=== PATIENT | male | born 1970 | race Two or more races ===

== ENCOUNTER 2023-07-20 19:02 | Inpatient (IN) | payer BC ==
[~2023-07-20] VITALS: Ht 170.2 cm; Wt 106.2 kg
[~2023-07-20 19:02] MED LIST: AMIO200T33 PO; ASPI-325 PO; ATOR20TA50 PO; CLOP75TA70 PO; EMPA1TAB PO; ERGO1CAP23 PO; FURO40TA4 PO; MAGN400T40 PO; MELA5TAB16 PO; MET25T PO; PANT40T PO; POTA-220 PO
[2023-07-20 19:56] LABS: Basophils # (auto) 0.1 10 ^3/uL (0-0.2); Basophils % (auto) 1.2 % (0.0-2.0); Eosinophils # (auto) 0.1 10 ^3/uL (0-0.8); Eosinophils % (auto) 1.5 % (0.0-7.0); Hematocrit 36.6 % (41.0-53.0); Hemoglobin 12.1 g/dL (13.5-17.5); Lymphocytes % (auto) 23.6 % (10.0-50.0); Mean Corpuscular Hemoglobin 29.2 pg (28.0-32.0); Mean Corpuscular Volume 88.5 fL (80.0-100.0); Monocytes # (auto) 0.6 10 ^3/uL (0-1.3); Monocytes % (auto) 7.5 % (0.0-12.0); Neutrophils # (auto) 5.6 10 ^3/uL (1.6-8.6); Neutrophils % (auto) 66.2 % (37.0-80.0); Red Blood Cells 4.13 10^6/uL (4.5-5.90); Red Cell Distribution Width 14.6 % (11.8-14.3); White Blood Cell 8.4 10^3/uL (4.4-10.8)
[2023-07-20 20:04] VITALS: PULSE 88; RESP 15; O2SAT 97
[2023-07-20 20:13] LABS: INR 1.02 (0.9-1.15); Partial Thromboplastin Time 26.2 SEC (24.5-34.5); Prothrombin Time 10.7 sec (9.3-11.8)
[2023-07-20] MEDS: IOHEXOL 350 MG/ML 100ML IJ ONE (20:14)
[2023-07-20 20:33] LABS: Albumin 4.1 g/dL (3.2-4.8); Alkaline Phosphatase 155 U/L (46-116); Anion Gap 7 (5-15); Aspartate Aminotransferase 43 U/L (13-40); Calcium 9.4 mg/dL (8.7-10.4); Carbon Dioxide 26 mmol/L (20-30); Chloride 105 mmol/L (98-107); Glucose 109 mg/dL (74-106); Magnesium 1.8 mg/dL (1.6-2.6); Sodium 138 mmol/L (136-145)
[2023-07-20 20:34] LABS: Bilirubin, Total 0.4 mg/dL (0.2-1.0); Total Protein 7.7 g/dL (5.7-8.2)
[2023-07-20 20:54] LABS: Alanine Aminotransferase 32 U/L (7-40); BUN/Creatinine Ratio 10.6 (10.0-20.0); Blood Urea Nitrogen 13 mg/dL (9-23); Potassium 4.5 mmol/L (3.5-5.1)
[2023-07-21] MEDS ORDERED: ACETAMINOPHEN 325 MG TAB PO PRN (00:30)
[2023-07-21] MEDS ORDERED: HYDROcodone-ACET 5/325MG TAB PO PRN (00:30)
[2023-07-21] MEDS ORDERED: DEXTROSE (50%) 50ML SYRG IV PRN (00:30)
[2023-07-21] MEDS ORDERED: ONDANSETRON HCL 4 MG/2 ML VIAL IV PRN (00:30)
[2023-07-21 00:41] LABS: Urine Bacteria None Seen /hpf (None Seen)
[2023-07-21 01:30] LABS: Amphetamine Screen, Urine Neg (NEGATIVE); Barbiturate Scree,Urine Neg (NEGATIVE); Benzodiazephine Screen, Urine Neg (NEGATIVE)
[2023-07-21 01:31] LABS: Cannabinoid Screen, Urine Neg (NEGATIVE); Cocaine Screen, Urine Neg (NEGATIVE); Opiate Scree,Urine Neg (NEGATIVE); Phencyclidine Screen, Urine Neg (NEGATIVE)
[2023-07-21] MEDS ORDERED: MORPHINE SULFATE INJ 2 MG/ml SYRG IV PRN (01:45)
[2023-07-21] MEDS ORDERED: NITROGLYCERIN 0.4 MG SL TAB SL PRN (01:45)
[2023-07-21 02:03] LABS: Urine Blood 3+ /uL (Negative); Urine Clarity Clear (Clear); Urine Color Yellow (Yellow); Urine Protein, UAD TRACE (Negative); Urine Urobilinogen Normal (Negative); Urine WBC 129 /hpf (0 - 3)
[2023-07-21 02:09] LABS: Urine Specific Gravity > 1.050 (1.001-1.035)
[2023-07-21] MEDS: SODIUM CHLORIDE 0.9% 500 ML IV ONE (03:31)
[2023-07-21 04:41] LABS: Basophils # (auto) 0.1 10 ^3/uL (0-0.2); Basophils % (auto) 1.1 % (0.0-2.0); Eosinophils # (auto) 0.2 10 ^3/uL (0-0.8); Eosinophils % (auto) 2.3 % (0.0-7.0); Hematocrit 37.9 % (41.0-53.0); Hemoglobin 12.4 g/dL (13.5-17.5); Lymphocytes % (auto) 29.6 % (10.0-50.0); Mean Corpuscular Hemoglobin 29.1 pg (28.0-32.0); Mean Corpuscular Hgb Conc. 32.6 g/dL (32.0-36.0); Mean Corpuscular Volume 89.3 fL (80.0-100.0); Monocytes # (auto) 0.5 10 ^3/uL (0-1.3); Monocytes % (auto) 7.6 % (0.0-12.0); Neutrophils # (auto) 4.1 10 ^3/uL (1.6-8.6); Neutrophils % (auto) 59.4 % (37.0-80.0); Nucleated Red Blood Cells % 0.1 %; Red Blood Cells 4.24 10^6/uL (4.5-5.90); Red Cell Distribution Width 14.8 % (11.8-14.3); White Blood Cell 6.9 10^3/uL (4.4-10.8)
[2023-07-21] MEDS: SODIUM CHLORIDE 0.9% 1,000 ML IV ONE (05:12)
[2023-07-21] MEDS: SODIUM CHLOR 0.9% PF (SALINE LOCK) 10ML VIAL/SYR IV SCH (06:05)
[2023-07-21 06:19] LABS: Alanine Aminotransferase 31 U/L (7-40); Albumin 3.9 g/dL (3.2-4.8); Alkaline Phosphatase 152 U/L (46-116); Anion Gap 9 (5-15); Aspartate Aminotransferase 27 U/L (13-40); BUN/Creatinine Ratio 14.9 (10.0-20.0); Bilirubin, Total 0.4 mg/dL (0.2-1.0); Blood Urea Nitrogen 15 mg/dL (9-23); Calcium 9.5 mg/dL (8.7-10.4); Carbon Dioxide 24 mmol/L (20-30); Chloride 106 mmol/L (98-107); Glucose 101 mg/dL (74-106); Potassium 4.3 mmol/L (3.5-5.1); Sodium 139 mmol/L (136-145)
[2023-07-21 06:20] LABS: Total Protein 6.9 g/dL (5.7-8.2)
[2023-07-21] MEDS: SODIUM CHLORIDE 0.9% 1,000 ML IV SCH (06:27)
[2023-07-21] MEDS ORDERED: ACCU-CHEK COMFORT CURVE STRIP VI SCH (07:00)
[2023-07-21] MEDS ORDERED: InsuLIN REG 1unit/0.01ml Soln (100units/ml) SC SCH (07:00)
[2023-07-21] MEDS: METOPROLOL TARTRATE 25 MG TAB PO SCH (10:00)
[2023-07-21] MEDS: FUROSEMIDE 40 MG/4 ML VIAL IV SCH (10:00)
[2023-07-21] MEDS: EMPAGLIFLOZIN 10 MG TAB PO SCH (10:00)
[2023-07-21] MEDS: SACUBITRIL-VALSARTAN 24mg/26mg TAB PO SCH (10:00)
[2023-07-21] MEDS: ASPirin 81 mg TAB PO SCH (10:00)
[2023-07-21] MEDS: CLOPIDOGREL BISULFATE 75 MG TAB PO SCH (10:00)
[2023-07-21] MEDS ORDERED: METO25TA93 PO (10:23)
[2023-07-21 10:48] LABS: Magnesium 1.9 mg/dL (1.6-2.6)
[2023-07-21] MEDS: MAGNESIUM OXIDE 400 MG TAB PO ONE (14:10)
[2023-07-21 15:10] VITALS: PULSE 74; RESP 20; O2SAT 96
[2023-07-21 16:30] VITALS: BP 106/66; PULSE 74; RESP 17; TEMP 97.8; O2SAT 97
[2023-07-21 20:00] VITALS: BP 107/67; PULSE 81; PULSE 82; RESP 18; TEMP 98.3; O2SAT 98
[2023-07-21 22:00] VITALS: BP 107/67; PULSE 81; RESP 18; TEMP 98.3; O2SAT 98
[2023-07-21] MEDS ORDERED: LORazepam 2MG/ML-1ML VIAL IV PRN (22:00)
[2023-07-21] MEDS: AMIODARONE HCL 200 MG TAB PO SCH (22:07)
[2023-07-21] MEDS: ATORVASTATIN 20 MG TAB PO SCH (22:07)
[2023-07-21 22:42] VITALS: O2SAT 98
[2023-07-22] VITALS (9 sets, daily range): BP systolic 95–109; BP diastolic 46–67; PULSE 74–89; RESP 17–20; TEMP 97.8–98.9; O2SAT 95–98
[2023-07-22 06:10] LABS: Alanine Aminotransferase 22 U/L (7-40); Albumin 3.6 g/dL (3.2-4.8); Alkaline Phosphatase 127 U/L (46-116); Anion Gap 5 (5-15); Aspartate Aminotransferase 16 U/L (13-40); BUN/Creatinine Ratio 12.1 (10.0-20.0); Bilirubin, Total 0.5 mg/dL (0.2-1.0); Blood Urea Nitrogen 13 mg/dL (9-23); Carbon Dioxide 28 mmol/L (20-30); Chloride 106 mmol/L (98-107); Glucose 101 mg/dL (74-106); Potassium 3.6 mmol/L (3.5-5.1); Sodium 139 mmol/L (136-145); Total Protein 6.4 g/dL (5.7-8.2)
[2023-07-22 06:17] LABS: Basophils # (auto) 0 10 ^3/uL (0-0.2); Basophils % (auto) 0.7 % (0.0-2.0); Eosinophils # (auto) 0.2 10 ^3/uL (0-0.8); Eosinophils % (auto) 2.4 % (0.0-7.0); Hematocrit 34.9 % (41.0-53.0); Hemoglobin 11.4 g/dL (13.5-17.5); Lymphocytes # (auto) 2.2 10 ^3/uL (0.4-5.4); Lymphocytes % (auto) 34.3 % (10.0-50.0); Mean Corpuscular Hemoglobin 29.4 pg (28.0-32.0); Mean Corpuscular Hgb Conc. 32.7 g/dL (32.0-36.0); Monocytes # (auto) 0.4 10 ^3/uL (0-1.3); Monocytes % (auto) 6.2 % (0.0-12.0); Neutrophils # (auto) 3.6 10 ^3/uL (1.6-8.6); Neutrophils % (auto) 56.4 % (37.0-80.0); Red Blood Cells 3.88 10^6/uL (4.5-5.90); Red Cell Distribution Width 15.1 % (11.8-14.3); White Blood Cell 6.4 10^3/uL (4.4-10.8)
[2023-07-22] MEDS: MAGNESIUM OXIDE 400 MG TAB PO SCH (10:26)
[2023-07-23] VITALS (9 sets, daily range): BP systolic 96–124; BP diastolic 47–76; PULSE 77–96; RESP 17–91; TEMP 97.4–98.2; O2SAT 95–99
[2023-07-23] MEDS: SPIRONOLACTONE 25 MG TAB PO SCH (12:01)
[2023-07-23 12:13] LABS: Basophils # (auto) 0.1 10 ^3/uL (0-0.2); Eosinophils # (auto) 0.1 10 ^3/uL (0-0.8); Eosinophils % (auto) 1.8 % (0.0-7.0); Hematocrit 39.2 % (41.0-53.0); Hemoglobin 12.5 g/dL (13.5-17.5); Lymphocytes # (auto) 1.9 10 ^3/uL (0.4-5.4); Lymphocytes % (auto) 30.5 % (10.0-50.0); Mean Corpuscular Volume 90.5 fL (80.0-100.0); Monocytes # (auto) 0.4 10 ^3/uL (0-1.3); Monocytes % (auto) 6.1 % (0.0-12.0); Neutrophils # (auto) 3.7 10 ^3/uL (1.6-8.6); Neutrophils % (auto) 60.6 % (37.0-80.0); Nucleated Red Blood Cells % 0.1 %; Red Blood Cells 4.33 10^6/uL (4.5-5.90); Red Cell Distribution Width 15.1 % (11.8-14.3); White Blood Cell 6.2 10^3/uL (4.4-10.8)
[2023-07-23 12:21] LABS: Chloride 107 mmol/L (98-107); Potassium 3.7 mmol/L (3.5-5.1); Sodium 140 mmol/L (136-145)
[2023-07-23 12:22] LABS: Anion Gap 9 (5-15); Calcium 9.2 mg/dL (8.5-10.1); Carbon Dioxide 24 mmol/L (20-30)
[2023-07-23 12:27] LABS: Glucose 110 mg/dL (74-106)
[2023-07-23 12:28] LABS: Blood Urea Nitrogen 9 mg/dL (9-23)
[2023-07-23] MEDS: DOCUSATE SOD 100 MG CAP PO PRN (18:45)
[2023-07-24] VITALS (11 sets, daily range): BP systolic 88–129; BP diastolic 50–83; PULSE 70–92; RESP 14–20; TEMP 97.7–98.3; O2SAT 96–99
[2023-07-24 05:52] LABS: Basophils # (auto) 0.1 10 ^3/uL (0-0.2); Basophils % (auto) 0.8 % (0.0-2.0); Eosinophils # (auto) 0.2 10 ^3/uL (0-0.8); Eosinophils % (auto) 2.7 % (0.0-7.0); Hematocrit 36.8 % (41.0-53.0); Hemoglobin 11.8 g/dL (13.5-17.5); Lymphocytes # (auto) 2.4 10 ^3/uL (0.4-5.4); Lymphocytes % (auto) 34.5 % (10.0-50.0); Mean Corpuscular Hemoglobin 28.4 pg (28.0-32.0); Mean Corpuscular Hgb Conc. 32.1 g/dL (32.0-36.0); Mean Corpuscular Volume 88.7 fL (80.0-100.0); Monocytes # (auto) 0.5 10 ^3/uL (0-1.3); Neutrophils # (auto) 3.8 10 ^3/uL (1.6-8.6); Red Blood Cells 4.15 10^6/uL (4.5-5.90); Red Cell Distribution Width 14.5 % (11.8-14.3); White Blood Cell 6.9 10^3/uL (4.4-10.8)
[2023-07-24 06:17] LABS: Chloride 108 mmol/L (98-107); Potassium 3.8 mmol/L (3.5-5.1); Sodium 138 mmol/L (136-145)
[2023-07-24 06:18] LABS: Calcium 9.2 mg/dL (8.7-10.4)
[2023-07-24 06:23] LABS: BUN/Creatinine Ratio 10.6 (10.0-20.0); Blood Urea Nitrogen 11 mg/dL (9-23); Glucose 97 mg/dL (74-106)
[2023-07-24 07:21] LABS: Anion Gap 6 (5-15); Carbon Dioxide 24 mmol/L (20-30)
[2023-07-24] MEDS: MIDAZOLAM HCL 2MG/2ML 2ml VIAL (1mg/ml) ONE (12:52)
[2023-07-24] MEDS: fentaNYL CITRATE 100 MCG/2 ML VL ONE (12:52)
[2023-07-24] MEDS: LIDOCAINE VISCOUS 2% 15ML UD ONE (12:52)
[2023-07-24] MEDS: LIDOCAINE VISCOUS 2% 15ML UD PO ONE (13:48)
[2023-07-24] MEDS: fentaNYL CITRATE 100 MCG/2 ML VL IV ONE (13:58)
[2023-07-24] MEDS: MIDAZOLAM HCL 2MG/2ML 2ml VIAL (1mg/ml) IV ONE (13:58)
[2023-07-25 00:54] VITALS: BP 103/65; PULSE 97; RESP 16; TEMP 98.6; O2SAT 100
[2023-07-25 05:00] VITALS: BP 86/55; PULSE 87; RESP 17; TEMP 97.6; O2SAT 97
[2023-07-25 06:48] LABS: Chloride 107 mmol/L (98-107); Potassium 3.9 mmol/L (3.5-5.1); Sodium 138 mmol/L (136-145)
[2023-07-25 06:49] LABS: Anion Gap 7 (5-15); Calcium 9.1 mg/dL (8.5-10.1); Carbon Dioxide 24 mmol/L (20-30)
[2023-07-25 06:54] LABS: BUN/Creatinine Ratio 10.3 (10.0-20.0); Blood Urea Nitrogen 12 mg/dL (9-23); Glucose 98 mg/dL (74-106)
[2023-07-25 07:09] LABS: Basophils # (auto) 0 10 ^3/uL (0-0.2); Basophils % (auto) 0.7 % (0.0-2.0); Eosinophils # (auto) 0.2 10 ^3/uL (0-0.8); Eosinophils % (auto) 2.5 % (0.0-7.0); Hemoglobin 12.1 g/dL (13.5-17.5); Lymphocytes # (auto) 2.1 10 ^3/uL (0.4-5.4); Lymphocytes % (auto) 32.1 % (10.0-50.0); Magnesium 2.1 mg/dL (1.6-2.6); Mean Corpuscular Hemoglobin 29.3 pg (28.0-32.0); Mean Corpuscular Hgb Conc. 32.8 g/dL (32.0-36.0); Mean Corpuscular Volume 89.3 fL (80.0-100.0); Monocytes # (auto) 0.5 10 ^3/uL (0-1.3); Monocytes % (auto) 7.8 % (0.0-12.0); Neutrophils # (auto) 3.8 10 ^3/uL (1.6-8.6); Neutrophils % (auto) 56.9 % (37.0-80.0); Nucleated Red Blood Cells % 0.1 %; Red Blood Cells 4.14 10^6/uL (4.5-5.90); Red Cell Distribution Width 15.1 % (11.8-14.3); White Blood Cell 6.7 10^3/uL (4.4-10.8)
[2023-07-25 08:00] VITALS: PULSE 82; PULSE 88; RESP 18; O2SAT 98
[2023-07-25 09:00] VITALS: BP 95/54; PULSE 88; RESP 18; TEMP 97.8; O2SAT 98
[2023-07-25] MEDS ORDERED: CLOP75TA70 PO (10:24)
[2023-07-25] MEDS ORDERED: SACU1TAB PO (10:24)
[2023-07-25] MEDS ORDERED: MET25T PO (10:24)
[2023-07-25] MEDS ORDERED: ATOR20TA50 PO (10:24)
[2023-07-25] MEDS ORDERED: SPIR25TA PO (10:24)
[2023-07-25] MEDS ORDERED: ASPI-325 PO (10:24)
[2023-07-25] MEDS ORDERED: CEPH250C PO (13:11)
[2023-07-25 13:23] VITALS: BP 96/59; PULSE 73; RESP 14; TEMP 98.3; O2SAT 97
== END 2023-07-25 15:28 | disposition home or self-care (01) | DRG 64 ==
LOC: ER 19:02 → TELE 07-21 01:35 → TELE-CENTR 07-21 01:35
PROVIDERS: ADMIT Internal Medicine; ATTEND Surgery
PROC: B24BZZ4 Ultrasonography of Heart with Aorta, Transesophageal (ICD-10-PCS; principal; 2023-07-24)
DX: I63.9 Cerebral infarction, unspecified (principal); I21.A1 Myocardial infarction type 2; I50.33 Acute on chronic diastolic (congestive) heart failure; G81.94 Hemiplegia, unspecified affecting left nondominant side; I11.0 Hypertensive heart disease with heart failure; I25.5 Ischemic cardiomyopathy; E66.01 Morbid (severe) obesity due to excess calories; I49.8 Other specified cardiac arrhythmias; R47.81 Slurred speech; I25.10 Atherosclerotic heart disease of native coronary artery without angina pectoris; E78.2 Mixed hyperlipidemia; I44.7 Left bundle-branch block, unspecified; F17.200 Nicotine dependence, unspecified, uncomplicated; Z98.61 Coronary angioplasty status; Z79.82 Long term (current) use of aspirin; Z79.899 Other long term (current) drug therapy; Z82.49 Family history of ischemic heart disease and other diseases of the circulatory system; Z83.3 Family history of diabetes mellitus; Z68.36 Body mass index [BMI] 36.0-36.9, adult
CPT/HCPCS: 36415; 70450; 70496; 70551; 71045; 80048; 80053; 80061; 80307; 81001; 83735; 83880; 84443; 84484; 85025; 85610; 85730; 87081; 93005; 93312; 93886; 93970; 97163; 99152; G0378; J2250

== ENCOUNTER 2023-08-20 08:36 | Inpatient (IN) | payer BC ==
[~2023-08-20] VITALS: Ht 170.2 cm; Wt 104.0 kg
[~2023-08-20 08:36] MED LIST changes: +CEPH250C PO; +SACU1TAB PO; +SPIR25TA PO
[2023-08-20] MEDS: ONDANSETRON HCL 4 MG/2 ML VIAL IV ONE (09:19)
[2023-08-20 09:21] VITALS: PULSE 63; RESP 20; O2SAT 98
[2023-08-20 09:21] LABS: Basophils # (auto) 0.1 10 ^3/uL (0-0.2); Basophils % (auto) 1.1 % (0.0-2.0); Eosinophils # (auto) 0.6 10 ^3/uL (0-0.8); Hematocrit 42.6 % (41.0-53.0); Hemoglobin 13.8 g/dL (13.5-17.5); Lymphocytes # (auto) 2.2 10 ^3/uL (0.4-5.4); Lymphocytes % (auto) 23.2 % (10.0-50.0); Mean Corpuscular Hemoglobin 29.3 pg (28.0-32.0); Mean Corpuscular Hgb Conc. 32.3 g/dL (32.0-36.0); Mean Corpuscular Volume 90.8 fL (80.0-100.0); Monocytes # (auto) 0.7 10 ^3/uL (0-1.3); Monocytes % (auto) 7.5 % (0.0-12.0); Neutrophils % (auto) 62.2 % (37.0-80.0); Red Cell Distribution Width 15.3 % (11.8-14.3); White Blood Cell 9.6 10^3/uL (4.4-10.8)
[2023-08-20 09:38] LABS: Chloride 107 mmol/L (98-107); Potassium 3.8 mmol/L (3.5-5.1); Sodium 142 mmol/L (136-145)
[2023-08-20 09:39] LABS: Anion Gap 10 (5-15); Carbon Dioxide 25 mmol/L (20-30)
[2023-08-20 09:40] LABS: Calcium 10.4 mg/dL (8.5-10.1)
[2023-08-20 09:44] LABS: BUN/Creatinine Ratio 9.1 (10.0-20.0); Blood Urea Nitrogen 11 mg/dL (9-23); Glucose 137 mg/dL (74-106)
[2023-08-20] MEDS ORDERED: MORPHINE SULFATE INJ 2 MG/ml SYRG IV PRN (11:45)
[2023-08-20] MEDS ORDERED: ACETAMINOPHEN 325 MG TAB PO PRN (11:45)
[2023-08-20] MEDS ORDERED: NITROGLYCERIN 0.4 MG SL TAB SL PRN (11:45)
[2023-08-20] MEDS ORDERED: DEXTROSE (50%) 50ML SYRG IV PRN (12:15)
[2023-08-20] MEDS: ERGOCALCIFEROL 50,000 UNIT(1.25MG) CAP PO SCH (12:21)
[2023-08-20] MEDS: MECLIZINE HCL 25 MG TAB PO ONE (12:21)
[2023-08-20] MEDS: SODIUM CHLORIDE 0.9% 2,000 ML IV ONE (12:29)
[2023-08-20 15:00] LABS: Urine Bacteria None Seen /hpf (None Seen)
[2023-08-20 15:08] LABS: Urine Blood 1+ /uL (Negative); Urine Clarity Clear (Clear); Urine Color Yellow (Yellow); Urine Mucus FEW (None Seen); Urine Protein, UAD TRACE (Negative); Urine Specific Gravity 1.022 (1.001-1.035); Urine Urobilinogen Normal (Negative); Urine WBC 3 /hpf (0 - 3); Urine pH 6.5 (5.0-9.0)
[2023-08-20] MEDS: SODIUM CHLORIDE 0.9% 1,000 ML IV SCH (15:36)
[2023-08-20] MEDS: InsuLIN REG 1unit/0.01ml Soln (100units/ml) SC SCH (17:00)
[2023-08-20] MEDS: ACCU-CHEK COMFORT CURVE STRIP VI SCH (17:21)
[2023-08-20 20:09] VITALS: PULSE 79; RESP 12; O2SAT 96
[2023-08-20] MEDS: METOPROLOL TARTRATE 25 MG TAB PO SCH (22:58)
[2023-08-20] MEDS: AMIODARONE HCL 200 MG TAB PO SCH (22:58)
[2023-08-20] MEDS: MELATONIN 5 MG TAB PO SCH (22:58)
[2023-08-20] MEDS: SACUBITRIL-VALSARTAN 24mg/26mg TAB PO SCH (22:58)
[2023-08-20] MEDS: ATORVASTATIN 20 MG TAB PO SCH (22:59)
[2023-08-21] VITALS (7 sets, daily range): BP systolic 91–98; BP diastolic 53–61; PULSE 55–62; RESP 18–20; TEMP 97.6–98; O2SAT 97–98
[2023-08-21 05:38] LABS: Basophils # (auto) 0 10 ^3/uL (0-0.2); Basophils % (auto) 0.6 % (0.0-2.0); Eosinophils # (auto) 0.6 10 ^3/uL (0-0.8); Eosinophils % (auto) 8.5 % (0.0-7.0); Hematocrit 36.6 % (41.0-53.0); Lymphocytes # (auto) 1.6 10 ^3/uL (0.4-5.4); Lymphocytes % (auto) 23.6 % (10.0-50.0); Mean Corpuscular Hemoglobin 29.5 pg (28.0-32.0); Mean Corpuscular Hgb Conc. 32.7 g/dL (32.0-36.0); Mean Corpuscular Volume 90.3 fL (80.0-100.0); Monocytes # (auto) 0.5 10 ^3/uL (0-1.3); Monocytes % (auto) 6.8 % (0.0-12.0); Neutrophils # (auto) 4.2 10 ^3/uL (1.6-8.6); Neutrophils % (auto) 60.5 % (37.0-80.0); Red Blood Cells 4.06 10^6/uL (4.5-5.90); Red Cell Distribution Width 14.8 % (11.8-14.3)
[2023-08-21 05:46] LABS: Alanine Aminotransferase 68 U/L (7-40); Alkaline Phosphatase 92 U/L (46-116); Anion Gap 7 (5-15); Aspartate Aminotransferase 38 U/L (13-40); BUN/Creatinine Ratio 9.6 (10.0-20.0); Blood Urea Nitrogen 11 mg/dL (9-23); Calcium 9.4 mg/dL (8.5-10.1); Carbon Dioxide 26 mmol/L (20-30); Chloride 110 mmol/L (98-107); Glucose 107 mg/dL (74-106); Potassium 3.9 mmol/L (3.5-5.1); Sodium 143 mmol/L (136-145)
[2023-08-21 05:47] LABS: Albumin 3.8 g/dL (3.2-4.8); Bilirubin, Total 0.4 mg/dL (0.2-1.0); Total Protein 6.3 g/dL (5.7-8.2)
[2023-08-21] MEDS: MAGNESIUM OXIDE 400 MG TAB PO SCH (10:00)
[2023-08-21] MEDS: POTASSIUM CHL 20 Meq TABLET PO SCH (10:47)
[2023-08-21] MEDS: CLOPIDOGREL BISULFATE 75 MG TAB PO SCH (10:47)
[2023-08-21] MEDS: PANTOPRAZOLE 40 MG TAB PO SCH (10:48)
[2023-08-21] MEDS: ASPirin-EC 81 mg tab PO SCH (10:49)
[2023-08-21] MEDS: MECLIZINE HCL 25 MG TAB PO PRN (10:58)
[2023-08-21] MEDS: SPIRONOLACTONE 25 MG TAB PO SCH (14:01)
[2023-08-21] MEDS: FUROSEMIDE 40 MG TAB PO SCH (14:05)
[2023-08-21] MEDS: SACUBITRIL-VALSARTAN 24mg/26mg TAB PO SCH (22:00)
[2023-08-22] VITALS (8 sets, daily range): BP systolic 83–105; BP diastolic 50–70; PULSE 58–84; RESP 17–20; TEMP 97.6–98.2; O2SAT 94–100
[2023-08-22 07:01] LABS: Basophils # (auto) 0 10 ^3/uL (0-0.2); Basophils % (auto) 0.8 % (0.0-2.0); Eosinophils # (auto) 0.5 10 ^3/uL (0-0.8); Hematocrit 37.8 % (41.0-53.0); Hemoglobin 12.3 g/dL (13.5-17.5); Lymphocytes # (auto) 1.6 10 ^3/uL (0.4-5.4); Lymphocytes % (auto) 26.3 % (10.0-50.0); Mean Corpuscular Hemoglobin 29.2 pg (28.0-32.0); Mean Corpuscular Hgb Conc. 32.5 g/dL (32.0-36.0); Mean Corpuscular Volume 89.9 fL (80.0-100.0); Monocytes # (auto) 0.4 10 ^3/uL (0-1.3); Neutrophils # (auto) 3.5 10 ^3/uL (1.6-8.6); Neutrophils % (auto) 57.9 % (37.0-80.0); Red Blood Cells 4.21 10^6/uL (4.5-5.90); Red Cell Distribution Width 14.7 % (11.8-14.3)
[2023-08-22 07:23] LABS: Alanine Aminotransferase 81 U/L (7-40); Albumin 3.7 g/dL (3.2-4.8); Alkaline Phosphatase 92 U/L (46-116); Anion Gap 9 (5-15); Aspartate Aminotransferase 44 U/L (13-40); BUN/Creatinine Ratio 8.6 (10.0-20.0); Bilirubin, Total 0.5 mg/dL (0.2-1.0); Blood Urea Nitrogen 9 mg/dL (9-23); Calcium 9.5 mg/dL (8.5-10.1); Carbon Dioxide 24 mmol/L (20-30); Chloride 106 mmol/L (98-107); Glucose 92 mg/dL (74-106); Potassium 3.9 mmol/L (3.5-5.1); Sodium 139 mmol/L (136-145); Total Protein 6.3 g/dL (5.7-8.2)
[2023-08-22] MEDS: EMPAGLIFLOZIN 10 MG TAB PO SCH (09:58)
[2023-08-23 01:00] VITALS: BP 94/52; PULSE 68; RESP 20; TEMP 98.3; O2SAT 95
[2023-08-23 05:00] VITALS: BP 88/59; PULSE 71; RESP 22; TEMP 97.9; O2SAT 98
[2023-08-23 08:00] VITALS: PULSE 70
[2023-08-23 08:58] VITALS: BP 98/58; PULSE 71; RESP 19; TEMP 98; O2SAT 100
[2023-08-23] MEDS: LACTULOSE 20Gm/30ML SOLN PO ONE (09:27)
[2023-08-23 10:12] LABS: Basophils # (auto) 0.1 10 ^3/uL (0-0.2); Basophils % (auto) 0.9 % (0.0-2.0); Eosinophils # (auto) 0.5 10 ^3/uL (0-0.8); Eosinophils % (auto) 8.4 % (0.0-7.0); Hematocrit 40.8 % (41.0-53.0); Hemoglobin 13.5 g/dL (13.5-17.5); Lymphocytes # (auto) 1.3 10 ^3/uL (0.4-5.4); Lymphocytes % (auto) 20.8 % (10.0-50.0); Mean Corpuscular Hemoglobin 29.1 pg (28.0-32.0); Mean Corpuscular Hgb Conc. 33.1 g/dL (32.0-36.0); Mean Corpuscular Volume 88.2 fL (80.0-100.0); Monocytes # (auto) 0.4 10 ^3/uL (0-1.3); Monocytes % (auto) 5.7 % (0.0-12.0); Neutrophils # (auto) 4.2 10 ^3/uL (1.6-8.6); Neutrophils % (auto) 64.2 % (37.0-80.0); Nucleated Red Blood Cells % 0.1 %; Red Blood Cells 4.62 10^6/uL (4.5-5.90); Red Cell Distribution Width 14.6 % (11.8-14.3); White Blood Cell 6.5 10^3/uL (4.4-10.8)
[2023-08-23 10:18] LABS: Alanine Aminotransferase 121 U/L (7-40); Albumin 4.4 g/dL (3.2-4.8); Alkaline Phosphatase 117 U/L (46-116); Anion Gap 10 (5-15); Aspartate Aminotransferase 72 U/L (13-40); Blood Urea Nitrogen 14 mg/dL (9-23); Calcium 10.1 mg/dL (8.5-10.1); Carbon Dioxide 25 mmol/L (20-30); Chloride 103 mmol/L (98-107); Glucose 133 mg/dL (74-106); Potassium 3.8 mmol/L (3.5-5.1); Sodium 138 mmol/L (136-145)
[2023-08-23 10:19] LABS: Bilirubin, Total 0.5 mg/dL (0.2-1.0); Total Protein 7.5 g/dL (5.7-8.2)
[2023-08-23 10:26] VITALS: BP 98/58; PULSE 71; RESP 19; TEMP 98; O2SAT 100
== END 2023-08-23 12:47 | disposition home or self-care (01) | DRG 312 ==
LOC: ER 08:36 → OVERFLOW 11:45 → WEST WING 08-21 08:10 → TELE-WESTW 08-21 15:52
PROVIDERS: ADMIT Internal Medicine; ATTEND Internal Medicine
DX: I95.2 Hypotension due to drugs (principal); I50.23 Acute on chronic systolic (congestive) heart failure; I47.20 Ventricular tachycardia, unspecified; E87.20 Acidosis, unspecified; E86.0 Dehydration; R00.1 Bradycardia, unspecified; E78.00 Pure hypercholesterolemia, unspecified; E66.01 Morbid (severe) obesity due to excess calories; I11.0 Hypertensive heart disease with heart failure; T50.995A Adverse effect of other drugs, medicaments and biological substances, initial encounter; E11.9 Type 2 diabetes mellitus without complications; I25.5 Ischemic cardiomyopathy; G90.8 Other disorders of autonomic nervous system; I25.2 Old myocardial infarction; Z79.02 Long term (current) use of antithrombotics/antiplatelets; Z87.442 Personal history of urinary calculi; Z86.73 Personal history of transient ischemic attack (TIA), and cerebral infarction without residual deficits; Z98.61 Coronary angioplasty status; Z83.3 Family history of diabetes mellitus; Z79.4 Long term (current) use of insulin; Z82.49 Family history of ischemic heart disease and other diseases of the circulatory system; Z86.74 Personal history of sudden cardiac arrest; Z68.35 Body mass index [BMI] 35.0-35.9, adult; Y92.89 Other specified places as the place of occurrence of the external cause
CPT/HCPCS: 36415; 71045; 80048; 80053; 81001; 82962; 83605; 83735; 83880; 84484; 85025; 85379; 87040; 87081; 93005; 93306; 93886; 96374; G0378; J2405

== ENCOUNTER → 2023-08-28 | Outpatient (CLI) | payer BC ==
[~2023-08-28] MED LIST changes: -CEPH250C PO; -MET25T PO; -SPIR25TA PO
[2023-08-28 15:52] LABS: Basophils # (auto) 0 10 ^3/uL (0-0.2); Basophils % (auto) 0.8 % (0.0-2.0); Eosinophils # (auto) 0.8 10 ^3/uL (0-0.8); Eosinophils % (auto) 12.8 % (0.0-7.0); Hemoglobin 12.3 g/dL (13.5-17.5); Lymphocytes # (auto) 1.4 10 ^3/uL (0.4-5.4); Lymphocytes % (auto) 22.8 % (10.0-50.0); Mean Corpuscular Hemoglobin 28.7 pg (28.0-32.0); Mean Corpuscular Hgb Conc. 32.3 g/dL (32.0-36.0); Monocytes # (auto) 0.7 10 ^3/uL (0-1.3); Monocytes % (auto) 10.5 % (0.0-12.0); Neutrophils # (auto) 3.3 10 ^3/uL (1.6-8.6); Neutrophils % (auto) 53.1 % (37.0-80.0); Nucleated Red Blood Cells % 0.1 %; Red Blood Cells 4.27 10^6/uL (4.5-5.90); Red Cell Distribution Width 14.6 % (11.8-14.3); White Blood Cell 6.3 10^3/uL (4.4-10.8)
[2023-08-28 16:37] LABS: Anion Gap 6 (5-15); Calcium 9.6 mg/dL (8.5-10.1); Carbon Dioxide 28 mmol/L (20-30); Chloride 106 mmol/L (98-107); Potassium 3.9 mmol/L (3.5-5.1); Sodium 140 mmol/L (136-145)
[2023-08-28 16:42] LABS: Glucose 94 mg/dL (74-106)
[2023-08-28 16:43] LABS: BUN/Creatinine Ratio 9.2 (10.0-20.0); Blood Urea Nitrogen 11 mg/dL (9-23)
== END | disposition home or self-care (01) ==
LOC: LAB 15:26
PROVIDERS: ATTEND Internal Medicine
DX: Z11.59 Encounter for screening for other viral diseases (principal); D64.9 Anemia, unspecified; I95.9 Hypotension, unspecified; I63.9 Cerebral infarction, unspecified; Z72.51 High risk heterosexual behavior
CPT/HCPCS: 36415; 80048; 85025; 86790

== ENCOUNTER → 2024-02-01 | Outpatient (CLI) | payer BC | END | disposition home or self-care (01) | LOC: XYW 10:30 | PROVIDERS: ATTEND Student in an Organized Health Care Education/Training Program | DX: I25.9 Chronic ischemic heart disease, unspecified (principal) | CPT/HCPCS: 78472; A9560 ==

== ENCOUNTER → 2024-10-14 | Outpatient (CLI) | payer BC ==
[~2024-10-14] VITALS: Ht 175.3 cm; Wt 99.3 kg
--- NOTE | 2024-10-14 11:11 | DVHCARD ---
Cardiology Stress Test [place] Treadmill Stress Test [place] Referring MD: MD Orlin Protocol: Gaurav (with cardiolite) Reason for referral: Other (CAD) Target heart Rate:@85%: 141 Percent MPHR: 167 METS: 8.9 Resting Heart rate: 57 Resting Blood Pressure: 114/71 Exercise Heart Rate: 121 Exercise Blood Pressure: 131/62 Reason for Termination of Test: Shortness of breath Baseline EKG: Sinus rhythm with LBBB Stress EKG: Sinus tachycardia with LBBB Functional Capacity: Mildly Decreased Heart Rate Response: Adequate Blood Pressure Response: Normal Clinical response: Inconclusive Arrhythmia?: No Cardiolite Injected?: Yes ST-T Changes: Inconclusive Probability of Inducible Ische: Perfusion result pending Comments: Undiscernible ST changes given LBBB Date of Service: Oct 14, 2024 Billing Provider: LANCE HENDERSON Cardiology Common Codes: PROCEDURE ONLY Treadmill W/Cardiolite Nuclear: [id number], INTERP, RPT LANCE HENDERSON Oct 14, 2024 11:11
--- NOTE | 2024-10-14 13:05 | DVHSR ---
APPROVED REPORT Exam: Nuclear Stress Test BMI: 0 Stress Test Details HR Max Heart Rate (APMHR): 167.128473 bpm Target HR (85% APMHR): 141.499530 bpm BP ECG Stress ECG Conclusion anterior wall and apex is full thickness infarct suspected [place] [employer] no reversible ischemia mild LV dysfunction LVEF 42% NM EXAM: Myocardial Perfusion REST/STRESS Imaging Protocol: Rest Tc-99m/Stress Tc-99m 1 day Resting Data Rest SPECT myocardial perfusion imaging was performed in supine position 45 minutes following the int ravenous injection of 11.0 mCi of Tc-99m Sestamibi. Time of rest injection: 08:25 Date: 10/14/2024 Time of rest imagin:10 Date: 10/14/2024 Administration Route: IV Administration Site: Left Arm Exercise Stress At peak stress, the patient was injected intravenously with 33.0mCi of Tc-99m Sestamibi. Time of stress injection: 09:43 Date: 10/14/2024 Time of stress imagin:15 Date: 10/14/2024 Administration Route: IV Administration Site: Left Arm Gated Stress SPECT was performed 32 minutes after stress injection. The images were gated to evaluate regional wall motion and calculate left ventricular ejection fracti on. Stress only was performed in the Supine position. Nuclear Conclusion Nuclear Findings: negative for ischemia anterior wall and apex is full thickness infarct suspected [place] [employer] no reversible ischemia mild LV dysfunction LVEF 42%
== END | disposition home or self-care (01) ==
LOC: XY 08:12
PROVIDERS: ATTEND Internal Medicine
DX: I25.10 Atherosclerotic heart disease of native coronary artery without angina pectoris (principal); I50.42 Chronic combined systolic (congestive) and diastolic (congestive) heart failure; E78.5 Hyperlipidemia, unspecified
CPT/HCPCS: 78452; 93017; A9500

== ENCOUNTER 2025-02-15 22:09 | Emergency (ER) | payer BC ==
[~2025-02-15] VITALS: Ht 170.2 cm; Wt 100.9 kg
--- NOTE | 2025-02-15 22:52 | ED.PDOC ---
History of Present Illness HPI Comments 54-year-old male who came to ER for high blood pressure. Patient does have history of hypertension, status post cardiac stent. Was at home when he started experiencing chest substernal chest discomfort. Blood pressure taken at home was 127/72 mm Hg. Upon arrival to the ER blood pressure was 139/84 mm Hg. Patient appears anxious at this time of care Chief Complaint: High Blood Pressure Time Seen by MD: 22:51 Primary Care Provider: HAWA Chavez Notes: Nurses Notes Allergies: Coded Allergies: NO KNOWN ALLERGIES (Unverified , 06/28/23) Home Meds Active Scripts Sacubitril-Valsartan (Entresto 24-26 mg) 1 Tab Tab, 0.5 TAB PO BID for 30 Days, #30 TAB Prov:RACHEL LOMBARDI RESIDENT 07/25/23 Clopidogrel Bisulfate (CLOPIDOGREL) 75 Mg Tab, 75 MG PO DAILY for 30 Days, #30 TAB Prov:RACHEL LOMBARDI [facility] 07/25/23 Atorvastatin Calcium (ATORVASTATIN CALCIUM) 20 Mg Tab, 40 MG PO HS for 30 Days, #60 TAB Prov:RACHEL LOMBARDI [facility] 07/25/23 Magnesium Oxide (MAGNESIUM OXIDE) 400 Mg Tab, 1 TAB PO DAILY, #30 TAB 5 Refills Prov:NELLY RESENDIZ [facility] 07/07/23 Amiodarone Hcl (Amiodarone Hcl) 200 Mg Tab, 200 MG PO BID for 30 Days, #60 TAB Prov:NELLY RESENDIZ [facility] 07/07/23 Potassium Chloride (Klor-Con M20) 20 Meq Tab, 20 MEQ PO DAILY for 30 Days, #30 TAB Prov:NELLY RESENDIZ [facility] 07/07/23 Pantoprazole Sodium Sesquihydr (Pantoprazole Sodium) 40 Mg Tab, 40 MG PO DAILY for 30 Days, #30 TAB Prov:NELLY RESENDIZ [facility] 07/07/23 Melatonin (Melatonin) 5 Mg Tab, 5 MG PO HS for 30 Days, #30 TAB Prov:NELLY RESENDIZ [facility] 07/07/23 Furosemide (Furosemide) 40 Mg Tab, 20 MG PO DAILY for 30 Days, #15 TAB Prov:NELLY RESENDIZ [facility] 07/07/23 Ergocalciferol (VITAMIN D 40953 UNIT) 50,000 [place], [address] UNIT PO Q7D for 30 Days, #10 CAP Prov:NELLY RESENDIZ RESIDENT 07/07/23 Empagliflozin (Jardiance) 10 Mg Tab, 10 MG PO DAILY for 30 Days, #30 TAB Prov:NELLY RESENDIZ RESIDENT 07/07/23 Aspirin (Aspirin Low Dose) 81 Mg Tab, 81 MG PO DAILY for 30 Days, #30 TAB Prov:NELLY RESENDIZ 07/07/23 Information Source: Patient Mode of Arrival: Ambulatory Timing: Hours Past Medical History PAST MEDICAL HISTORY: DM, High Lipids, HTN, Kidney Stones, ID Surgical History: PTCA Family History Family History: Reviewed,noncontributory to illness Social History Smoker: Non-Smoker Alcohol: Denies ETOH Use Drugs: Denies Drug Use Lives In: Home Constitutional: denies: chills, diaphoresis, fatigue, fever, malaise, sweats, weakness, others EENTM: denies: blurred vision, double vision, ear bleeding, ear discharge, ear drainage, ear pain, ear ringing, eye pain, eye redness, hearing loss, mouth pain, mouth swelling, nasal discharge, nose bleeding, nose congestion, nose pain, photophobia, tearing, throat pain, throat swelling, voice changes, others Respiratory: denies: cough, hemoptysis, orthopnea, SOB at rest, shortness of breath, SOB with excertion, stridor, wheezing, others Cardiovascular: reports: chest pain; denies: dizzy spells, diaphoresis, Dyspnea on exertion, edema, irregular heart beat, left arm pain, lightheadedness, palpitations, PND, syncope, others Gastrointestinal: denies: abdomen distended, abdominal pain, blood streaked bowels, constipated, diarrhea, dysphagia, difficulty swallowing, hematemesis, melena, nausea, poor appetite, poor fluid intake, rectal bleeding, rectal pain, vomiting, others Genitourinary: denies: burning, dysuria, flank pain, frequency, hematuria, incontinence, penile discharge, penile sore, pain, testicle pain, testicle swelling, urgency, others Neurological: denies: dizziness, fainting, headache, left sided numbness, left sided weakness, numbness, paresthesia, pre-existing deficit, right sided numbness, right sided weakness, seizure, speech problems, tingling, tremors, weakness, others Musculoskeletal: denies: back pain, gout, joint pain, joint swelling, muscle pain, muscle stiffness, neck pain, others Integumetry: denies: bruises, change in color, change in hair/nails, dryness, laceration, lesions, lumps, rash, wounds, others Allergic/Immunocompromised: denies: Difficulty Healing, Frequent Infections, Hives, Itching, others Hematologic/Lymphatic: denies: anemia, blood clots, easy bleeding, easy bruising, swollen glands, others Endocrine: denies: excessive hunger, excessive sweating, excessive thirst, excessive urination, flushing, intolerance to cold, intolerance to heat, unexplained weight gain, unexplained weight loss, others Psychiatric: denies: anxiety, bipolar disorder, depression, hopeless, panic disorder, schizophrenia, sleepless, suicidal, others Physical Exam General Appearance: No Apparent Distress, Normal HEENT: Normal ENT Inspection, Pharynx Normal, TMs Normal Neck: Full Range of Motion, Non-Tender, Normal, Normal Inspection Respiratory: Chest Non-Tender, Lungs Clear, No Accessory Muscle Use, No Respiratory Distress, Normal Breath Sounds Cardiovascular: No Edema, No JVD, No Murmur, No Gallop, Normal Peripheral Pulses, Regular Rate/Rhythm Breast Exam: Deferred Gastrointestinal: No Organomegaly, Non Tender, No Pulsatile Mass, Normal Bowel Sounds, Soft Genitalia: Deferred Pelvic: Deferred Rectal: Deferred Extremities: No calf tenderness, Normal capillary refill, Normal inspection, Normal range of motion, Non-tender, No pedal edema Musculoskeletal : Apperance: Normal Neurologic: Alert, 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 Was a procedure done?: No EKG EKG : Pulse Rate (adult): 67 Cardiac Rhythm: NSR Differential Dx Considerations may include: Anemia, electrolyte imbalance, hypertension, anxiety X-Ray, Labs, Meds, VS Vital Signs Date Time Temp Pulse Resp B/P (MAP) Pulse Ox O2 Delivery O2 Flow Rate FiO2 02/16/25 01:33 70 16 100 Room Air* 0 21 02/16/25 00:43 97.8 63 18 127/75 (92) 100 97.8 02/15/25 22:52 67 02/15/25 22:10 97.2 66 16 139/84 98 97.2 Lab Test 02/16/25 00:01 02/15/25 23:00 Range/Units Troponin I High Sensitivity 3 L < 3 L </=54 ng/L White Blood Count 6.7 4.4-10.8 10^3/uL Red Blood Count 4.35 L 4.5-5.90 10^6/uL Hemoglobin 9.8 L 13.5-17.5 g/dL Hematocrit 31.4 L 41.0-53.0 % Mean Corpuscular Volume 72.2 L 80.0-100.0 fL Mean Corpuscular Hemoglobin 22.5 L 28.0-32.0 pg Mean Corpuscular Hemoglobin Concent 31.2 L 32.0-36.0 g/dL Red Cell Distribution Width 19.4 H 11.8-14.3 % Platelet Count 221 140-450 10^3/uL Mean Platelet Volume 8.5 6.9-10.8 fL Neutrophils (%) (Auto) 61.7 37.0-80.0 % Lymphocytes (%) (Auto) 28.2 10.0-50.0 % Monocytes (%) (Auto) 8.1 0.0-12.0 % Eosinophils (%) (Auto) 1.1 0.0-7.0 % Basophils (%) (Auto) 0.9 0.0-2.0 % Neutrophils # (Auto) 4.2 1.6-8.6 10 ^3/uL Lymphocytes # (Auto) 1.9 0.4-5.4 10 ^3/uL Monocytes # (Auto) 0.5 0-1.3 10 ^3/uL Eosinophils # (Auto) 0.1 0-0.8 10 ^3/uL Basophils # (Auto) 0.1 0-0.2 10 ^3/uL Nucleated Red Blood Cells 0.1 % Sodium Level 142 136-145 mmol/L Potassium Level 4.4 3.5-5.1 mmol/L Chloride Level 108 H 98-107 mmol/L Carbon Dioxide Level 26 20-31 mmol/L Anion Gap 8 5-15 Blood Urea Nitrogen 21 9-23 mg/dL Creatinine 1.86 H 0.700-1.30 mg/dL Glomerular Filtration Rate Calc 43 >90 mL/min BUN/Creatinine Ratio 11.3 10.0-20.0 Serum Glucose 109 H 74-106 mg/dL Calcium Level 8.9 8.7-10.4 mg/dL Total Bilirubin 0.3 0.2-1.0 mg/dL Aspartate Amino Transferase (AST) 24 13-40 U/L Alanine Aminotransferase (ALT) 25 7-40 U/L Alkaline Phosphatase 121 H 46-116 U/L Total Protein 7.6 5.7-8.2 g/dL Albumin 4.5 3.2-4.8 g/dL Time of 1ST Reevaluation: 22:49 Reevaluation 1ST: Unchanged Patient Education/Counseling: Diagnosis, Treatment Family Education/Counseling: No Family Present SEPSIS Sepsis Screen Date sepsis recognized/suspect: Feb 15, 2025 Time Sepsis recognized/suspect: 2211 Recent Procedure: No On Antibiotic Therapy: No Respiratory Rate >20: No Heart Rate >90: No Temp<36 C (96.8 F) or >38.3 C: No SBP <90 or MAP <65 mmHG: No New Acute Mental Status Change: No Is the patient on CPAP, BIPAP,: No Physician Orders Electrocardigram (02/15/25 22:14) Electrocardigram (02/15/25 23:14) Electrocardigram (02/16/25 01:14) Vital Signs Date Time Temp Pulse Resp B/P (MAP) Pulse Ox O2 Delivery O2 Flow Rate FiO2 02/16/25 01:33 70 16 100 Room Air* 0 21 02/16/25 00:43 97.8 63 18 127/75 (92) 100 97.8 02/15/25 22:52 67 02/15/25 22:10 97.2 66 16 139/84 98 97.2 Laboratory Tests Test 02/15/25 23:00 White Blood Count 6.7 10^3/uL (4.4-10.8) Departure 1 Departure Time of Disposition: 01:00 Impression: Primary Impression: Hypertension Additional Impressions: Anemia Renal insufficiency Disposition: 01 HOME / SELF CARE / HOMELESS Condition: Stable Discharged With: Self Critical Care Note Critical Care Time?: No Stability Stability form required: No Heart Score Heart Score: Heart Score Response (Comments) Value History Slightly Suspicious 0 EKG Normal 0 Age 45-64 1 Risk Factors 1 or 2 risk factors 1 Troponin Normal limit 0 Total 2 I personally scribed for NOWLIS,MICHAEL A MD ([email or web address]) on 02/15/25 at 22:52. Electronically submitted by Jamil Yuan ([email or web address]). MICHAEL BRADY MD Feb 15, 2025 22:52
[2025-02-15 23:17] LABS: Hematocrit 31.4 % (41.0-53.0); Hemoglobin 9.8 g/dL (13.5-17.5); Mean Corpuscular Hemoglobin 22.5 pg (28.0-32.0); Mean Corpuscular Volume 72.2 fL (80.0-100.0); Nucleated Red Blood Cells % 0.1 %
[2025-02-15 23:32] LABS: Alanine Aminotransferase 25 U/L (7-40); Albumin 4.5 g/dL (3.2-4.8); Anion Gap 8 (5-15); BUN/Creatinine Ratio 11.3 (10.0-20.0); Bilirubin, Total 0.3 mg/dL (0.2-1.0); Blood Urea Nitrogen 21 mg/dL (9-23); Calcium 8.9 mg/dL (8.7-10.4); Carbon Dioxide 26 mmol/L (20-31); Potassium 4.4 mmol/L (3.5-5.1); Sodium 142 mmol/L (136-145); Total Protein 7.6 g/dL (5.7-8.2)
[2025-02-15 23:36] LABS: Alkaline Phosphatase 121 U/L (46-116); Chloride 108 mmol/L (98-107); Glucose 109 mg/dL (74-106)
[2025-02-16 00:43] VITALS: BP 127/75; TEMP 97.8
[2025-02-16 01:33] VITALS: PULSE 70; RESP 16; O2SAT 100
--- NOTE | 2025-02-18 10:35 | ECG ---
[facility] Test Date: 2025-02-15 Test Time: 22:17:35 Pat Name: KVNG LOZANO Department: Room: Gender: M [employer] Teacher: JUSTICE : 1970 Requested By: EMERGENCY EMERGENCY Order Number: [id number] Reading MD: Chapin Ordaz Measurements Intervals [place] Rate: 67 P: 52 KS: 221 QRS: -38 QRSD: 197 T: 107 QT: 473 QTc: 500 Interpretive Statements Sinus rhythm Prolonged KS interval Probable left atrial enlargement Left bundle branch block Electronically Signed On 02-18-2025 13:32:12 PST by Chapin Ordaz Please click the below link to view image of tracing.
== END 2025-02-16 01:37 | disposition home or self-care (01) ==
LOC: ER 22:09
DX: D64.9 Anemia, unspecified (principal); I10 Essential (primary) hypertension; N28.9 Disorder of kidney and ureter, unspecified; Z79.899 Other long term (current) drug therapy
CPT/HCPCS: 36415; 80053; 84484; 85025; 93005

== ENCOUNTER 2025-03-21 09:11 | Day surgery (SDC) | payer BC ==
[2025-03-17 11:01] LABS: Nucleated Red Blood Cells % 0.1 %
[2025-03-17 11:03] LABS: Hematocrit 33.7 % (41.0-53.0); Hemoglobin 10.5 g/dL (13.5-17.5); Mean Corpuscular Hemoglobin 22.7 pg (28.0-32.0); Mean Corpuscular Volume 72.6 fL (80.0-100.0)
[2025-03-17 11:07] LABS: Urine Protein, UAD 1+ (Negative)
[2025-03-17 11:16] LABS: INR 1.0 (0.9-1.15); Partial Thromboplastin Time 25.1 SEC (24.5-34.5); Prothrombin Time 10.6 sec (9.3-11.8)
[2025-03-17 11:35] LABS: Alanine Aminotransferase 38 U/L (7-40); Alkaline Phosphatase 103 U/L (46-116); Anion Gap 11 (5-15); BUN/Creatinine Ratio 14.7 (10.0-20.0); Blood Urea Nitrogen 20 mg/dL (9-23); Calcium 9.8 mg/dL (8.7-10.4); Carbon Dioxide 27 mmol/L (20-31); Chloride 106 mmol/L (98-107); Potassium 5.0 mmol/L (3.5-5.1); Sodium 144 mmol/L (136-145)
[2025-03-17 11:36] LABS: Bilirubin, Total 0.5 mg/dL (0.2-1.0)
[2025-03-17 11:50] LABS: Albumin 4.8 g/dL (3.2-4.8); Glucose 108 mg/dL (74-106); Total Protein 8.2 g/dL (5.7-8.2)
[~2025-03-21] VITALS: Ht 170.2 cm; Wt 98.9 kg
[~2025-03-21 09:11] MED LIST changes: -EMPA1TAB PO; +FER325T PO; -MELA5TAB16 PO; +METO25TA93 PO; +SPIR25TA8 PO
[2025-03-21] MEDS ORDERED: LIDOCAINE 2%HCL (LOCAL ANESTH.) INJ 10ml MDV IJ ONE (09:12)
[2025-03-21] MEDS ORDERED: PHENYLEPHRINE HCL 10 MG/ML VL IV ONE (09:12)
[2025-03-21] MEDS ORDERED: PROPOFOL 10 MG/ML 20 ML IV ONE ×2 (10:03→10:45)
[2025-03-21 10:48] VITALS: PULSE 66; RESP 17; TEMP 97.9; O2SAT 100
--- NOTE | 2025-03-21 11:14 | DVHOP2 ---
Operative Report DATE OF OPERATION: 03/21/25 PROCEDURE: Colonoscopy with cold biopsy. PREOPERATIVE INDICATION: The patient is a 54 -year-old male undergoing colonoscopy for colon cancer screening POSTOPERATIVE DIAGNOSES: 1. Patient had a 2 mm benign-appearing transverse colon polyp that was seen and removed completely via cold biopsy forceps 2. There were three diminutive hyperplastic type sigmoid excrescences that were seen and removed by cold biopsy forceps 3. 1+ internal hemorrhoids otherwise completely normal colonoscopy examination up to the cecum and terminal ileum PROCEDURE PERFORMED BY: Rupert Ambriz M.D. SCOPE: Olympus videocolonoscope. ASA CLASS: 2 PREOPERATIVE MEDICATIONS: Mac sedation PROCEDURE IN DETAIL: After obtaining an informed consent, the patient was placed on left lateral decubitus position. He was then sedated with the above medications. A rectal examination was performed that was normal. The colonoscope was then passed through the anus into the rectosigmoid and through the descending, transverse, and ascending colon up to the cecum with visualization of the appendiceal orifice, base of the cecum and the ileocecal valve. The colonoscope was then withdrawn. The distal 5-10 cm of the terminal ileum were normal No masses or colitis were seen. There was no clear-cut diverticular disease There was a 2 mm benign-appearing polyp in the distal transverse colon that was removed by cold biopsy forceps There were 2-3 diminutive hyperplastic excrescences in the sigmoid that were removed by cold biopsy forceps On retroflexion and straight on view patient had trace to 1+ internal hemorrhoids The patient tolerated the procedure well without difficulty. WITHDRAWAL TIME: 7 minutes QUALITY OF THE PREP: [place] Bowel Prep score: 9. COMPLICATIONS : None SPECIMENS: Transverse colon polyp Sigmoid polyps DISPOSITION: Stable D/C to home PLAN: 1. Repeat colonoscopy base on biopsy result likely in 5 years 2. Resume GI soft diet 3. Resume anticoagulation in 48 hours 4. Outpatient follow up with me in 2-4 weeks to review results and discuss further management RUPERT AMBRIZ MD Mar 21, 2025 11:14
[2025-03-21 11:18] VITALS: BP 106/54; PULSE 62; RESP 11; O2SAT 99
--- NOTE | 2025-03-21 11:18 | DVHOP2 ---
Operative Report DATE OF OPERATION: 03/21/25 PROCEDURE: Upper Endoscopy with biopsy. PREOPERATIVE INDICATION: The patient is a 54 -year-old male undergoing endoscopy for anemia POSTOPERATIVE DIAGNOSES: 1. Mild antral gastritis with some hyperemia erythema 2. 5 mm extension of columnar epithelium into the distal esophagus with no significant erosive esophagitis PROCEDURE PERFORMED BY: Rupert Ambriz GI NURSE: Haydee SCOPE: Olympus videoendoscope. ASA CLASS: PREOPERATIVE MEDICATIONS: [place] PROCEDURE IN DETAIL: After obtaining an informed consent, the patient was placed on left lateral decubitus position. The patient was then sedated with the above medications. A bite block was placed between his teeth. The endoscope was then passed through the oropharynx, into the esophagus, and through the stomach and pylorus up to the second and third part of the duodenum. The endoscope was then withdrawn. The 2nd and 3rd part of the duodenal and the duodenal bulb were normal. Duodenal biopsies were obtained The pre-pyloric area antrum showed mild and gastritis with some hyperemia erythema. Antral gastric biopsies were obtained On retroflexion the fundus cardia and angularis were normal. The endoscope was then withdrawn into distal esophagus Patient had a 5 mm extension of columnar epithelium into the distal esophagus with no esophagitis The remaining distal and proximal esophagus and oropharynx were unremarkable The patient tolerated the procedure well without difficulty. COMPLICATIONS : None SPECIMENS: Duodenal biopsies Gastric biopsies DISPOSITION: Stable D/C to home PLAN: 1. Await for biopsy result 2. Will place pt on Protonix 40 mg p.o. daily 3. Avoid aspirin NSAIDs smoking alcohol 4. Resume GI soft diet advance as tolerated 5. Outpatient follow up with me in 2-4 weeks to review results and discuss further management RUPERT AMBRIZ MD Mar 21, 2025 11:18
== END 2025-03-21 11:32 | disposition home or self-care (01) ==
LOC: SUR 09:11
PROVIDERS: ATTEND Internal Medicine Gastroenterology
DX: D50.9 Iron deficiency anemia, unspecified (principal); K63.5 Polyp of colon; K64.8 Other hemorrhoids; K63.89 Other specified diseases of intestine; K29.50 Unspecified chronic gastritis without bleeding; K31.89 Other diseases of stomach and duodenum; I25.2 Old myocardial infarction; E66.9 Obesity, unspecified; Z68.34 Body mass index [BMI] 34.0-34.9, adult; Z79.01 Long term (current) use of anticoagulants; Z79.899 Other long term (current) drug therapy; Z86.2 Personal history of diseases of the blood and blood-forming organs and certain disorders involving the immune mechanism; Z95.5 Presence of coronary angioplasty implant and graft; Z87.891 Personal history of nicotine dependence
CPT/HCPCS: 36415; 43239; 45380; 80053; 81001; 85025; 85610; 85730; 88305; 88313; 88342; J2003; J2371; J2704; J7030